=== PATIENT | female | born 1975 | race Caucasian/White ===

== ENCOUNTER 2017-09-18 07:13 | Emergency (ER) | payer BC, OTHER ==
[~2017-09-18] VITALS: Ht 157.5 cm; Wt 90.0 kg
[~2017-09-18 07:13] MED LIST: AMBI5TAB PO; BUME1TAB PO; CLAR5TAB PO; COLY4000S PO; DICY1TAB26 PO; KLOR20TA6 PO; LORA10TA7 PO; MAGN1SOL2 PO; METO10TA PO; OXYC15TA PO; PROM25TA5 PO; RANI300T PO; STOO100T PO; SYNT25TA PO; VALI10TA PO; VENTAER INH; [UNRECOGNIZED DRUG - OTHER] INH
[2017-09-18 07:15] VITALS: BP 194/94; PULSE 80; RESP 16; TEMP 98.2; O2SAT 95
[2017-09-18] MEDS ORDERED: DULE100A INH (07:27)
[2017-09-18] MEDS ORDERED: ALBU0.63 NEB (07:28)
[2017-09-18] MEDS ORDERED: RESP: ALBUTEROL 2.5 MG/IPRATROPIUM 0.5 MG NEB (SCH) INH ONE (07:45)
[2017-09-18] MEDS ORDERED: SODIUM CHLORIDE 0.9% FLUSH 10 ML FLUSH IVF PRN (07:45)
[2017-09-18] MEDS: RESP: ALBUTEROL 2.5 MG/3 ML NEB (SCH) INH ×2 (07:45→08:00)
[2017-09-18] MEDS ORDERED: methylPREDNISolone SOD SUCC 125 MG/2 ML VIAL IV PUSH ONE (07:45)
--- NOTE | 2017-09-18 07:45 | PD ---
HPI Chief Complaint: Respiratory Symptoms Time Seen by Provider: 07:39 Travel History International Travel<30 days: No Contact w/Intl Traveler<30days: No Traveled to known affect area: No History of Present Illness HPI This is a 41-year-old female with a history of diabetes mellitus, hypertension, asthma, who presents today with claims of shortness of breath and wheezing since Monday, 2 days ago. The patient denies any fevers although subjectively states that she feels hot. Patient states that she is coughing but is not bringing up any phlegm. She states she has been using her nebulizer as scheduled however still having symptoms. Is no nausea vomiting diarrhea. There is no chest pain, chest pressure. PFSH Past Medical History Asthma: Yes Anxiety: Yes Cardiovascular Problems: Yes (PT WITH GENERALIZED SWELLING TO LOWER LEGS) High Cholesterol: Yes Diabetes: Yes Diminished Hearing: No GERD: Yes Hypertension: Yes Psychiatric: Yes Respiratory: Yes Immunizations Current: No Pancreatitis: Yes Thyroid Disease: Yes Tetanus Vaccination: > 5 Years Influenza Vaccination: No ?: Not : 3 Para: 2 Past Surgical History Appendectomy: Yes Section: Yes (X1) Cholecystectomy: Yes Gynecologic Surgery: Yes (HYSTERECTOMY) Hysterectomy: Yes Social History Alcohol Use: No Tobacco Use: Yes (half pack daily) Substance Use: No Allergies-Medications (Allergen,Severity, Reaction): Coded Allergies: cefaclor (Verified Allergy, Intermediate, hives, 09/18/17) Reported Meds & Prescriptions Reported Meds & Active Scripts Active Prednisone 20 Mg Tab 40 Mg PO DAILY Take 40 mg (2 tablets) daily for 5 days Doxycycline Hyclate 100 Mg Cap 100 Mg PO BID Reported Albuterol Neb (Albuterol Sulfate) 0.63 Mg/3 Ml Neb 0.63 Mg NEB Q6HR NEB PRN Dulera 120 Act Inh (Mometasone-Formoterol 120 Act Inh) 100-5 Mcg/Act Inh 2 Puff INH BID Review of Systems Except as stated in HPI: all other systems reviewed are Neg General / Constitutional: No: Fever, Chills HENT: No: Headaches (Although subjectively feels hot), Neck Pain Cardiovascular: No: Chest Pain or Discomfort, Palpitations Respiratory: Positive: Cough, Shortness of Breath, Wheezing Gastrointestinal: No: Nausea, Vomiting, Abdominal Pain Genitourinary: No: Frequency, Dysuria Musculoskeletal: No: Weakness, Pain Skin: No Rash, No Lesions Neurologic: No: Weakness, Dizziness, Headache Physical Exam Narrative GENERAL: Well-nourished, well-developed patient, in moderate respiratory distress. SKIN: Focused skin assessment warm/dry. HEAD: Normocephalic/atraumatic. EYES: No scleral icterus. No injection or drainage. NECK: Supple, trachea midline. No JVD or lymphadenopathy. CARDIOVASCULAR: Regular rate and rhythm without murmurs, gallops, or rubs. RESPIRATORY: Bilateral expiratory wheezes in the upper and mid lung kumar. Slight decreased breath sounds bilaterally in the lower lung kumar. GASTROINTESTINAL: Abdomen soft, non-tender, nondistended. MUSCULOSKELETAL: No cyanosis, or edema. BACK: Nontender without obvious deformity. No CVA tenderness. NEUROLOGICAL: Awake and alert. Cranial nerves II through XII intact. Motor grossly within normal limits. Five out of 5 muscle strength in all muscle groups. Normal speech. Data Data Last Documented VS Vital Signs Date Time Temp Pulse Resp B/P (MAP) Pulse Ox O2 Delivery O2 Flow Rate FiO2 09/18/17 07:28 89 22 98 Room Air 09/18/17 07:15 98.2 194/94 (127) Orders Orders Influenzae A/B Antigen (09/18/17 07:39) Iv Access Insert/Monitor (09/18/17 07:39) Ecg Monitoring (09/18/17 07:39) Oximetry (09/18/17 07:39) Oxygen Administration (09/18/17 07:39) Chest, Single Ap (09/18/17 07:39) Sodium Chloride 0.9% Flush (Ns Flush) (09/18/17 07:45) Methylprednisolone So Succ Inj (Solumedr (09/18/17 07:45) Albuterol-Ipratropium Neb (Duoneb Neb) (09/18/17 07:45) Albuterol Neb (Albuterol Neb) (09/18/17 07:45) Albuterol Neb (Albuterol Neb) (09/18/17 09:15) MDM Medical Decision Making Medical Screen Exam Complete: Yes Emergency Medical Condition: Yes Differential Diagnosis Asthma exacerbation versus bronchitis versus pneumonia versus influenza Narrative Course 31-year-old female presents today with complaints of cough and wheezing. Patient has a history of asthma. She has a history of gestational diabetes and is currently not taking any medication because her sugars are normal. She has been given nebulizer treatments 4. She is also given 125 mg of Solu-Medrol. Chest x-ray shows no evidence of acute infiltrate. The patient still does use tobacco products. Influenza is negative. She will be discharged with a prescription for doxycycline 100 mg p.o. twice daily 10 days. She also be given a prescription for prednisone 40 mg daily 5 days. She is instructed to stop smoking. She is also instructed to return should also any worsening symptoms. Diagnosis Primary Impression: Acute exacerbation of chronic bronchitis Additional Impression: Tobacco use Additional Instructions: Return if feeling worse. Stop smoking cigarettes. Nebulizer treatment every 3- 4 hours as needed. Med/Other Pt SpecificInfo: Prescription(s) given Scripts Prednisone (Prednisone) 20 Mg Tab 40 MG PO DAILY, #10 TAB 0 Refills Take 40 mg (2 tablets) daily for 5 days Prov: Ag Zimmer MD 09/18/17 Doxycycline Hyclate (Doxycycline Hyclate) 100 Mg Cap 100 MG PO BID for Infection, #20 CAP 0 Refills Prov: Ag Zimmer MD 09/18/17 Disposition: DISCHARGE HOME Condition: Stable gA Zimmer MD Sep 18, 2017 07:45
--- NOTE | 2017-09-18 08:13 | RADRPT ---
EXAM DATE/TIME: 09/18/2017 07:56 [facility] COMPARISON: No previous studies available for comparison. INDICATIONS : Shortness of breath and chest pain. MEDICAL HISTORY : Hypertension. Pancreatitis. Asthma. Diabetes. SURGICAL HISTORY : Appendectomy. Cholecystectomy. Hysterectomy. ENCOUNTER: Initial ACUITY: 3 days PAIN SCORE: 7/10 LOCATION: Bilateral chest FINDINGS: A single view of the chest demonstrates the lungs to be symmetrically aerated without evidence of mas s, infiltrate or effusion. The cardiomediastinal contours are unremarkable. Osseous structures are intact. CONCLUSION: No acute disease. Santos Escobar Jr., MD on September 18, 2017 at 8:11 Board Certified Radiologist. This report was verified electronically.
[2017-09-18] MEDS ORDERED: PRED20 PO (09:14)
[2017-09-18] MEDS ORDERED: DOXY100C PO (09:14)
[2017-09-18] MEDS ORDERED: RESP: ALBUTEROL 2.5 MG/3 ML NEB (SCH) NEB ONE (09:15)
[2017-09-18 09:38] VITALS: BP 154/78
== END 2017-09-18 09:38 | disposition home or self-care (01) ==
LOC: NEPC 07:13
DX: J42 Unspecified chronic bronchitis (principal); R05 Cough; J45.909 Unspecified asthma, uncomplicated; E11.9 Type 2 diabetes mellitus without complications; I10 Essential (primary) hypertension; Z72.0 Tobacco use
CPT/HCPCS: 71045; 87804; 94640; 94664; 96374; 99284; J2930; J7613

== ENCOUNTER 2017-12-25 12:52 | Emergency (ER) | payer BC, OTHER ==
[~2017-12-25] VITALS: Ht 157.5 cm; Wt 87.6 kg
[~2017-12-25 12:52] MED LIST changes: +ALBU0.63 NEB; -AMBI5TAB PO; -BUME1TAB PO; -CLAR5TAB PO; -COLY4000S PO; -DICY1TAB26 PO; +DOXY100C PO; +DULE100A INH; -KLOR20TA6 PO; -LORA10TA7 PO; -MAGN1SOL2 PO; -METO10TA PO; -OXYC15TA PO; +PRED20 PO; -PROM25TA5 PO; -RANI300T PO; -STOO100T PO; -SYNT25TA PO; -VALI10TA PO; -VENTAER INH; -[UNRECOGNIZED DRUG - OTHER] INH
[2017-12-25 12:56] VITALS: BP 181/88; PULSE 82; RESP 20; TEMP 98.2; O2SAT 96
--- NOTE | 2017-12-25 13:42 | PD ---
HPI Chief Complaint: Cold / Flu Symptoms Time Seen by Provider: 13:41 Travel History International Travel<30 days: No Contact w/Intl Traveler<30days: No Traveled to known affect area: No History of Present Illness HPI 42-year-old female came to the emergency room with history of shortness of breath and cough. Patient says her symptoms started about 3-4 days ago. She called her primary care and over the phone he prescribed cough medication as well as ciprofloxacin. Patient has taken it and today's the third day but says her symptoms are not improving. Her cough has been persistent and now her chest and back is hurting. No history of fever or chills. Patient has history of asthma and has been using her nebulizer but it does not help. Vital signs in triage were relatively stable except for her blood pressure being little high. No history of colored sputum. Patient is a smoker although she says in the past 3 weeks she has cut down from 1 pack a day to 5 cigarettes a day. PFSH Past Medical History Narrative Medical List of her past medical, surgical, social and family history is reviewed from the nursing note. Asthma: Yes Anxiety: Yes Cardiovascular Problems: Yes (PT WITH GENERALIZED SWELLING TO LOWER LEGS) High Cholesterol: Yes Diabetes: Yes Diminished Hearing: No GERD: Yes Hypertension: Yes Psychiatric: Yes Respiratory: Yes Immunizations Current: No Pancreatitis: Yes Thyroid Disease: Yes : 3 Para: 2 Past Surgical History Appendectomy: Yes Section: Yes (X1) Cholecystectomy: Yes Gynecologic Surgery: Yes (HYSTERECTOMY) Hysterectomy: Yes Social History Alcohol Use: No Tobacco Use: Yes (half pack daily) Substance Use: No Allergies-Medications (Allergen,Severity, Reaction): Coded Allergies: cefaclor (Verified Allergy, Intermediate, hives, 12/25/17) Comments List of her allergies reviewed from the nursing note. Reported Meds & Prescriptions Reported Meds & Active Scripts Active Zithromax Z-Abner (Azithromycin) 250 Mg Dspk 250 Mg PO DIRECTED 500 MG (2 tabs) day 1, then 1 tab days 2-5. Prednisone 20 Mg Tab 20 Mg PO BID 5 Days Albuterol Neb (Albuterol Sulfate) 2.5 Mg/3 Ml Neb 2.5 Mg NEB Q4HR NEB While awake Reported Morphine ER (Morphine Sulfate) 15 Mg Tab Unknown Dose PO DIRECTED Zantac (Ranitidine HCl) 150 Mg Tab 150 Mg PO DAILY Benzonatate 200 Mg Cap 200 Mg PO TID PRN Cipro (Ciprofloxacin HCl) 500 Mg Tab 500 Mg PO BID Temazepam 7.5 Mg Cap Unknown Dose PO HS PRN Albuterol Neb (Albuterol Sulfate) 0.63 Mg/3 Ml Neb 0.63 Mg NEB Q6HR NEB PRN Dulera 120 Act Inh (Mometasone-Formoterol 120 Act Inh) 100-5 Mcg/Act Inh 2 Puff INH BID Narrative Medication List of her home medications reviewed from the nursing note. Review of Systems Except as stated in HPI: all other systems reviewed are Neg Respiratory: Positive: Cough, Shortness of Breath Physical Exam Narrative GENERAL: Awake, alert, moderate distress SKIN: Focused skin assessment warm/dry. HEAD: Atraumatic. Normocephalic. EYES: Pupils equal and round. No scleral icterus. No injection or drainage. ENT: No nasal bleeding or discharge. Mucous membranes pink and moist. NECK: Trachea midline. No JVD. CARDIOVASCULAR: Regular rate and rhythm. No murmur appreciated. RESPIRATORY: Decreased air entry bilaterally with wheezing GASTROINTESTINAL: Abdomen soft, non-tender, nondistended. Hepatic and splenic margins not palpable. MUSCULOSKELETAL: No obvious deformities. No clubbing. No cyanosis. No edema. NEUROLOGICAL: Awake and alert. No obvious cranial nerve deficits. Motor grossly within normal limits. Normal speech. PSYCHIATRIC: Appropriate mood and affect; insight and judgment normal. Data Data Last Documented VS Vital Signs Date Time Temp Pulse Resp B/P (MAP) Pulse Ox O2 Delivery O2 Flow Rate FiO2 12/25/17 18:12 12/25/17 18:03 Room Air 12/25/17 16:59 70 18 97 12/25/17 13:54 2.00 12/25/17 12:56 98.2 Orders Orders Chest, Pa & Lat (12/25/17 13:51) Ecg Monitoring (12/25/17 13:51) Iv Access Insert/Monitor (12/25/17 13:51) Oximetry (12/25/17 13:51) Oxygen Administration (12/25/17 13:51) Prednisone (Deltasone) (12/25/17 14:00) Albuterol-Ipratropium Neb (Duoneb Neb) (12/25/17 14:00) Sodium Chloride 0.9% Flush (Ns Flush) (12/25/17 14:00) Ibuprofen (Motrin) (12/25/17 14:45) Electrocardiogram (12/25/17 ) Albuterol Neb (Albuterol Neb) (12/25/17 16:45) Azithromycin (Zithromax) (12/25/17 16:45) Ed Discharge Order (12/25/17 18:01) [facility] Medical Decision Making Medical Screen Exam Complete: Yes Emergency Medical Condition: Yes Medical Record Reviewed: Yes Interpretation(s) Twelve-lead EKG was reviewed by me. Normal sinus rhythm, normal axis, nonspecific ST-T wave changes, bradycardia. Heart rate of 56 bpm. Differential Diagnosis COPD exacerbation, asthma exacerbation, pneumonia Narrative Course 2:57 PM patient was given 3 DuoNeb's [id number] and p.o. prednisone. Chest x- ray suggestive of a lingular atelectasis versus pneumonia. In my opinion the ciprofloxacin is not the ideal coverage for respiratory pathogens. I will switch her to Z-Abner instead. I will reassess her in a bit. 6:02 PM I reassessed her and at this point the air entry seems improved although there is still some end expiratory wheeze. I am comfortable discharging her home at this point. Her oxygen saturation was 96% on room air. Procedures EKG Prior to Arrival: No Diagnosis Primary Impression: Asthma exacerbation Qualified Codes: J45.51 - Severe persistent asthma with (acute) exacerbation Additional Impressions: Shortness of breath Atypical pneumonia Needs smoking cessation education Additional Instructions: Take the albuterol prescribed to you in the nebulized form every 4-6 hours for next 48 hours. You should not be smoking or near smoke. Take the other medication as per the prescription direction. Follow-up with your primary care next couple days. Return to the ER if if the condition worsens any other new concerns. Med/Other Pt SpecificInfo: Prescription(s) given Scripts Azithromycin (Zithromax Z-Abner) 250 Mg Dspk 250 MG PO DIRECTED for Infection, #1 DSPK 0 Refills 500 MG (2 tabs) day 1, then 1 tab days 2-5. Prov: Medhat West MD 12/25/17 Prednisone (Prednisone) 20 Mg Tab 20 MG PO BID for 5 Days, #10 TAB 0 Refills Prov: Medhat West MD 12/25/17 Albuterol Neb (Albuterol Neb) 2.5 Mg/3 Ml Neb 2.5 MG NEB Q4HR NEB for Breathing Treatment, #60 NEBULE 0 Refills While awake Prov: Medhat West MD 12/25/17 Disposition: 01 DISCHARGE HOME Condition: Stable Medhat West MD December 25, 2017 13:42
[2017-12-25 13:54] VITALS: O2SAT 100
[2017-12-25] MEDS ORDERED: BENZ1CAP51 PO (13:57)
[2017-12-25] MEDS ORDERED: TEMA7.5C PO (13:57)
[2017-12-25] MEDS ORDERED: ZANT150T2 PO (13:57)
[2017-12-25] MEDS ORDERED: MORP1TAB24 PO (13:57)
[2017-12-25] MEDS ORDERED: CIPR-9 PO (13:57)
[2017-12-25] MEDS: RESP: ALBUTEROL 2.5 MG/IPRATROPIUM 0.5 MG NEB (SCH) INH (13:59)
[2017-12-25] MEDS ORDERED: SODIUM CHLORIDE 0.9% FLUSH 10 ML FLUSH IVF PRN (14:00)
[2017-12-25] MEDS ORDERED: predniSONE 20 MG TAB PO ONE (14:00)
--- NOTE | 2017-12-25 14:18 | RADRPT ---
EXAM DATE: 12/25/2017 2:14 PM EDT AGE/SEX: 42 years / Female INDICATIONS: Wheezing. Short of breath. CLINICAL DATA: This is the patient's initial encounter. Patient reports that signs and symptoms have been present for 4 - 6 days and indicates a pain score of 0/10. MEDICAL/SURGICAL HISTORY: . Hypertension. Pancreatitis. Asthma. Diabetes. . Appendectomy. Chol ecystectomy. Hysterectomy COMPARISON: No prior [facility] exams available for comparison. FINDINGS: PA and lateral views of the chest demonstrate the lungs to be hypererated with minimal density in the lingula. Right lung is relatively clear. The cardiomediastinal contours are unremarkable. Osseous st ructures are intact. CONCLUSION: Hyperinflation consistent with COPD. Minimal densities in the lingula could be atelectasis or infiltrate. Electronically signed by: Kavon Vuong MD 12/25/2017 2:17 PM EDT
[2017-12-25] MEDS ORDERED: IBUPROFEN 800 MG TAB PO ONE (14:45)
[2017-12-25] MEDS ORDERED: AZITHROMYCIN 250 MG TAB PO ONE (16:45)
[2017-12-25 16:59] VITALS: BP 143/85; PULSE 70; RESP 18; O2SAT 97
[2017-12-25] MEDS: RESP: ALBUTEROL 2.5 MG/3 ML NEB (SCH) INH (17:01)
[2017-12-25] MEDS ORDERED: ALBU0.08 NEB (18:05)
[2017-12-25] MEDS ORDERED: ZITHTAB PO (18:05)
[2017-12-25] MEDS ORDERED: PRED20 PO (18:05)
--- NOTE | 2017-12-26 14:02 | EKG ---
Date Performed: 12/25/2017 Time Performed: 14:55:36 PTAGE: 42 years EKG: SINUS BRADYCARDIA BORDERLINE ECG NO PREVIOUS TRACING DOCTOR: Bk Tyler Interpretating Date/Time 12/26/2017 14:00:54
== END 2017-12-25 18:18 | disposition home or self-care (01) ==
LOC: PHED 12:52
DX: J45.51 Severe persistent asthma with (acute) exacerbation (principal); J18.9 Pneumonia, unspecified organism; R94.31 Abnormal electrocardiogram [ECG] [EKG]; E11.9 Type 2 diabetes mellitus without complications; E78.00 Pure hypercholesterolemia, unspecified; F41.9 Anxiety disorder, unspecified; I10 Essential (primary) hypertension; K21.9 Gastro-esophageal reflux disease without esophagitis; F17.200 Nicotine dependence, unspecified, uncomplicated
CPT/HCPCS: 71046; 93005; 94640; 94664; 99284; J7512; J7613